=== PATIENT | female | born 1995 | race Caucasian/White ===

== ENCOUNTER 2021-09-21 17:34 | Emergency (ER) | payer OTHER, SELFPAY ==
--- NOTE | ~2021-09-21 | XR_ITS ---
EXAMINATION: XR foot LT min 3V DATE: 09/21/2021 17:56 INDICATION: Lateral left foot pain TECHNIQUE: Dorsoplantar, two oblique and lateral views of the left foot were obtained. COMPARISON: None. FINDINGS: Alignment is normal. No fracture. Joint spaces are normal. No cortical erosions or periosteal reactio n. Soft tissues are unremarkable. IMPRESSION: 1. Negative left foot radiographs. Reviewed, dictated and finalized at location A. [facility]
[2021-09-21 17:47] VITALS: BP 118/74; PULSE 76; RESP 16; TEMP 36.8; O2SAT 100
--- NOTE | 2021-09-21 18:58 | ED.LOWEXIN ---
HPI - Extremity Injury (Lower) General Chief Complaint: Extremity Injury, Lower Stated Complaint: Left Foot Pain Time Seen by Provider: 09/21/21 18:48 Source: patient, RN notes reviewed, old records reviewed and police Mode of arrival: ambulatory Limitations: no limitations History of Present Illness HPI Narrative: 25-year-old female who presents to [facility] with complaints of 1 week duration of discomfort to her left lateral foot with no known injury, She reports that she did go hiking prior to pain starting but no known injury while hiking occurred.Patient report that pain is throbbing and is worse with weight bearing. Patient states that she has been applying ice to area. She states that pain has improved but doesn't know why it is hurting. Related Data Home Medications Medication Instructions Recorded Confirmed bupropion HCl [Wellbutrin] 100 mg PO BID 09/21/21 09/21/21 magnesium 500 mg PO DAILY 09/21/21 09/21/21 omeprazole 20 mg PO DAILY 09/21/21 09/21/21 Allergies Allergy/AdvReac Type Severity Reaction Status Date / Time No Known Allergies Allergy Verified 09/21/21 18:47 Review of Systems Review of Systems: CONSTITUTIONAL: Denies fever, chills, or sweats. EYES: Denies visual changes, redness, or discharge. ENT: Denies rhinorrhea, congestion, sore throat, or otalgia. CARDIOVASCULAR: Denies chest pain, palpitations, or edema. RESPIRATORY: Denies cough or dyspnea. GASTROINTESTINAL: Denies abdominal pain, nausea, vomiting, or diarrhea. GENITOURINARY: Denies dysuria or hematuria. SKIN: Denies rash or itching. MUSCULOSKELETAL: Denies back pain, positive for pain to left lateral foot, or myalgia. NEUROLOGIC: Denies headache, numbness, or weakness. PSYCHIATRIC: Denies anxiety or depression. All systems reviewed & are unremarkable except as noted in HPI and below PMFSH Past Medical History Medical History (Updated 09/23/21 @ 20:43 by Belem Louis NP) Depression GERD (gastroesophageal reflux disease) Hx of migraines Surgical History Surgical History (Updated 09/23/21 @ 20:40 by Belem Louis NP) No history of previous surgery Family History Family History (Updated 09/23/21 @ 20:41 by Belem Louis NP) Other Family history non-contributory Social History Social History (Updated 09/23/21 @ 20:40 by Belem Louis NP) Smoking status: Never smoker Alcohol intake: current Alcohol use details: rare social Substance use: never Living arrangements: with family Gender identity (if verbalized by the patient): Female Comments At time of signature, agree with nursing past medical, surgical, social and family history. There is no relevant family history pertinent to the presenting complaint Exam Narrative: GENERAL: Well-appearing, well-nourished, and in no acute distress. HEAD: Normocephalic, atraumatic. EYES: PERRLA and EOMI. ENT: Nares clear, no rhinorrhea or epistaxis. Mucous membranes moist.TM's normal with good light reflex, throat pink with no lesions or exudates NECK: Supple.no lymphadenopathy CHEST: Clear to auscultation. No respiratory distress.SAO2 100% on room air HEART: Regular rate and rhythm. No murmur heard. Normal peripheral pulses. ABDOMEN: Soft, nontender, nondistended, normal active bowel sounds. EXTREMITIES: Normal range of motion. No edema tenderness to lateral aspect of left foot with full ROM present, circulation and sensation intact, pain with weight bearing with no known injury.. SKIN: Warm, dry, no rash. NEURO: No focal deficits. Alert and oriented x3. Course Vital Signs Vital signs: Vital Signs Temperature 36.8 C 09/21/21 17:47 Pulse Rate 76 09/21/21 17:47 Respiratory Rate 16 09/21/21 17:47 Blood Pressure 118/74 09/21/21 17:47 Pulse Oximetry 100 09/21/21 17:47 Temperature 36.8 C 09/21/21 17:47 Pulse Rate 76 09/21/21 17:47 Respiratory Rate 16 09/21/21 17:47 Blood Pressure 118/74 09/21/21 17:47 Pulse Oximet
== END 2021-09-21 19:20 | disposition home or self-care (01) ==
PROVIDERS: Emergency Provider Registered Nurse; PCP Family Medicine
DX: M79.672 Pain in left foot (principal); K21.9 Gastro-esophageal reflux disease without esophagitis; F32.9 Major depressive disorder, single episode, unspecified
CPT/HCPCS: 73630; 99213; G0463